=== PATIENT | female | born 1970 | race African-American/Black ===

== ENCOUNTER 2018-04-26 09:50 | Day surgery (SDC) | payer BC ==
--- NOTE | 2018-04-23 19:38 | EKG ---
Test Date: 2018-04-23 Test Time: 13:03:56 Coffee Bar Attendant: MARTHA MEASUREMENT RESULTS: Intervals: Rate: 66 AK: 152 QRSD: 162 QT: 452 QTc: 473 [place]: P: 42 AK: 152 QRS: 61 T: 16 INTERPRETIVE STATEMENTS: Normal sinus rhythm Right bundle branch block Abnormal ECG No previous ECG available for comparison Electronically Signed On 04-23-18 19:37:22 [employer]OT PIECE ASSEMBLER by Shekhar Mcclelland
[2018-04-26] MEDS ORDERED: Ringers Lactate 1,000 ML IV ONE (10:04)
[2018-04-26] MEDS ORDERED: OXYMETAZOLINE HCL 0.05% 15ML NAS ONE ×2 (10:04→10:43)
[2018-04-26] MEDS ORDERED: LIDOCAINE 1% W/EPI 1:100,000 MDV 50 ML VIAL ONE (10:43)
[2018-04-26] MEDS ORDERED: PROPOFOL 200 MG/20 ML VIAL IV ONE (11:26)
[2018-04-26] MEDS ORDERED: MIDAZOLAM HCL 2 MG/2 ML INJ ONE (11:27)
[2018-04-26] MEDS ORDERED: FENTANYL CITR 100 MCG/2 ML ONE ×2 (11:27→13:19)
[2018-04-26] MEDS ORDERED: LIDOCAINE 2% MPF 5 ML VIAL ONE ×2 (11:27→13:42)
[2018-04-26] MEDS ORDERED: ONDANSETRON 4 MG/2 ML VIAL ONE (11:28)
[2018-04-26] MEDS ORDERED: NEOSTIGMINE 1 MG/ML -5 ML SYRINGE ONE (12:22)
[2018-04-26] MEDS ORDERED: DEXAMETHASONE 10 MG/ML VIAL ONE (12:23)
[2018-04-26] MEDS ORDERED: NA CHLORIDE 0.9% 500 ML ONE (12:39)
[2018-04-26] MEDS ORDERED: GLYCOPYRROLATE 0.2 MG/ML SYR ONE ×2 (13:16)
--- NOTE | 2018-04-26 13:32 | P.BOP ---
Preoperative diagnosis: septal deviation, turbinate hypertrophy, nasal obstruction Postoperative diagnosis: same Primary procedure: septoplasty Secondary procedure: ITR Hang Gliding Instructor: Alicia Valencia Estimated blood loss: 20ml Specimen: none Findings: primarily bony deviation Anesthesia: General Complications: None Implants: Caban splints Fluids & blood products: crystalloid 700ml Transferred to: Recovery Room Condition: Good
[2018-04-26] MEDS ORDERED: LABETALOL 20 MG/4ML SYRINGE IV ONE (14:09)
[2018-04-26] MEDS ORDERED: TRAMADOL HCL 50 MG TAB ONE (14:55)
[2018-04-26 15:52] VITALS: BP 144/87; TEMP 97.1; O2SAT 96
--- NOTE | 2018-04-27 01:28 | OP ---
Surgeon: Jossie Quinteros MD Preoperative Diagnoses: 1.Septal deviation. 2.Turbinate hypertrophy. Postoperative Diagnoses: 1.Septal deviation. 2.Turbinate hypertrophy. Procedures: Septoplasty and submucous resection of turbinates. Indication For Procedure: Ms. Andrea Orr underwent treatment for chronic rhinosinusitis. A pos toperative CT scan was negative for mucosal disease, but demonstrated left septal deviation and bilat eral inferior turbinate hypertrophy, and she continued to have symptoms including taam-[id number]-[id number] ight nasal obstruction and postnasal drainage. The risks, benefits, and alternatives to the procedur e were discussed with the patient who agreed to proceed. Description Of Procedure In Detail: The nasal hairs were trimmed, and the nasal cavity was packed wi th Afrin-soaked pledgets. The face was prepped and draped in standard fashion for nasal surgery. Th e pledgets were removed, and the septum was examined using headlight and nasal speculum. There was b eulalia deviation of the septum. The septum was then injected with 1% lidocaine with epi. A left Killia n incision was made through the mucosa, and left mucosal flap was elevated. The Aurelio elevator was used to divide the cartilage from the bone of the septum, and a right mucosal flap was elevated from the bone. Heavy scissors were used to cut the bony septum, which was carefully loosened and removed, resulting in significant improvement of the deviation. The left mucosal flap tore during retraction with the nasal speculum. The septal flaps were reapproximated using quilting suture with a plain gu t on a Froylan needle. The Fletcher incision was not specifically closed due to plan for splint placeme nt. A stab incision was made in the head of the inferior turbinate bilaterally, and a [place] elevato r was used to develop a submucosal flap. The microdebrider fitted with the turbinate blade was used to remove excessive soft tissue from the anterior half of the inferior turbinates. A Crooks elevato r was then used to downfracture the inferior turbinates in order to improve the nasal airway. Afrin- soaked pledgets were applied to the nose to aid in hemostasis, which was well controlled. A Caban sp lint was placed in the bilateral nasal cavity and secured anteriorly using a single nylon suture. Th e nasopharynx and oropharynx were thoroughly suctioned. An orogastric tube was passed for removal of stomach contents. The count of needles and pledgets were confirmed correct, and the patient was ret urned to care of Anesthesia for awakening and extubation in the operating room, which proceeded witho ut difficulty. Complications: None. Disposition: The patient will follow up with Dr. Quinteros in 10 days for removal of splint and evalua tion of healing. LEDYI/DARCY Voice ID: [id number] Report ID: [id number]
== END 2018-04-26 15:27 | disposition home or self-care (01) ==
LOC: OR 09:50
PROVIDERS: ATTEND Otolaryngology
PROC: 09BL8ZZ Excision of Nasal Turbinate, Via Natural or Artificial Opening Endoscopic (ICD-10-PCS; 2018-04-26)
PROC: 09BM8ZZ Excision of Nasal Septum, Via Natural or Artificial Opening Endoscopic (ICD-10-PCS; principal; 2018-04-26 12:15)
DX: J34.2 Deviated nasal septum (principal); J34.3 Hypertrophy of nasal turbinates; I10 Essential (primary) hypertension; E03.9 Hypothyroidism, unspecified; Z88.2 Allergy status to sulfonamides; Z83.3 Family history of diabetes mellitus; Z82.49 Family history of ischemic heart disease and other diseases of the circulatory system; Z82.5 Family history of asthma and other chronic lower respiratory diseases
CPT/HCPCS: 93005; J1100; J2250; J2405; J2704; J2710; J3010